=== PATIENT | female | born 1950 | race Caucasian/White ===

== ENCOUNTER → 2019-03-01 | Outpatient (CLI) | payer MEDICARE, OTHER | END | disposition home or self-care (01) | LOC: PLD 11:52 → LAB SHORT 11:52 | DX: D04.39 Carcinoma in situ of skin of other parts of face (principal) | CPT/HCPCS: 88305 ==

== ENCOUNTER → 2020-08-28 | Outpatient (CLI) | payer MEDICARE, OTHER | END | disposition home or self-care (01) | LOC: LAB SHORT 11:17 | DX: D36.17 Benign neoplasm of peripheral nerves and autonomic nervous system of trunk, unspecified (principal) | CPT/HCPCS: 88305 ==